=== PATIENT | male | born 1980 | race Caucasian/White ===

== ENCOUNTER 2017-02-03 11:47 | Emergency (ER) | payer SELFPAY ==
[~2017-02-03] VITALS: Ht 170.2 cm; Wt 69.2 kg
[~2017-02-03 11:47] MED LIST: SIMV20TA2 PO
[2017-02-03 11:50] VITALS: TEMP 36.7; Ht 170.2 cm; Wt 69.2 kg
[2017-02-03] MEDS ORDERED: LPT/20 PO (12:49)
[2017-02-03 13:02] VITALS: BP 172/104; PULSE 65; O2SAT 98
--- NOTE | 2017-02-04 18:15 | EMERGENCY ROOM VISIT NOTE ---
ED Visit Note First contact with patient: 11:58 Chief Complaint: I can't see out of my left eye. History of Present Illness: Mr. Andrade is a 36-year-old white male who ambulates into the ED accompanied by a female friend complaining of visual changes in his left eye. Patient reports 5 days ago he woke up from sleep and notice there was redness and drainage from his eyes with leftward prominence. He was seen in emergency department in [place]; where he was working, and diagnosed with bilateral conjunctivitis. He reports he was prescribed sulfa-based antibiotic eyedrops and discharged. Over the 2 days he reports he was using the antibiotics as prescribed but he continued to have increasing drainage, tearing, light sensitivity and then on the second day he reports he had vision changes in the left eye. He reports he went back to the ED in [place] and they made a follow-up appointment with an kit assembler. Patient goes on to report that he contacted his boss in [place] and he encouraged him just to come home to be evaluated. Patient reports he drove all night with his to get home and he arrived late last night. Over the interim he reports he continues to have decreasing vision in his left eye. Currently he continues to have redness and drainage from the eye. He reports he is able to see shadows and bright lights but cannot distinguish letters words. He is not experiencing any pain except when exposure to bright light or wind. He has not taken any medications for pain. He continues his antibiotics as prescribed. He denies any associated symptoms including fevers, chills, sweats, skin eruptions, skin color changes, recent history of trauma to the eye , previous significant injuries or surgeries to the eye, upper respiratory tract symptoms, facial pain, visual changes in the right eye. Review of Systems: As noted above in history of present illness. 8 body systems were reviewed and found to be negative as noted above. Past Medical History: Dyslipidemia. Current Medications: Atorvastatin. Allergies to Medications: Patient denies. Social History: Patient is currently employed; he feels safe in his home environment; he admits tobacco and alcohol use. Physical Examination: Vital Signs: Date Time Temp Pulse Resp B/P (MAP) Pulse Ox O2 Delivery O2 Flow Rate FiO2 02/03/17 13:02 65 172/104 98 Room Air 02/03/17 11:50 36.7 65 20 173/99 99 Room Air GENERAL: 36-year-old male in mild distress due to symptoms, nontoxic-appearing, afebrile and hemodynamically stable. NEUROLOGICAL: Awake, alert and oriented to person, place and time. Answering questions appropriately and following commands. Normal gait. SKIN: Warm, dry and pink. No soft tissue eruptions or trauma noted. HEENT: Atraumatic and normocephalic. PERRLA. EOMI without nystagmus. Sclera erythematous and slightly edematous. Conjunctiva pink with drainage of clear tears; over the eyelid borders patient does have what appears to be a dry greenish mucus. No foreign bodies were found under the eyelids are embedded in the cornea. Carrier chamber was clear. On slit lamp examination in the left eye patient has a large amount of uptake of stain in a star shaped pattern over the entire cornea. No ulcers were appreciated. On the right eye there was no uptake. Visual acuity: Left 20/200, Right 20/20. Patient was able to perceive light and was able to distinguish number of fingers raised approximately 2 feet from his eyes. I did attempt to use the tonometer without success because it could not identify the eye. No erythema or tenderness over the frontal or maxillary sinuses. No erythema or tenderness over the soft tissues of the orbit. No local lymphadenopathy. Airway was patent. No intraoral trauma or signs of infection. ED Course: Patient is assessed as noted above. Patient's medications were reviewed. Alcaine was used to anesthetize the eye for examination. Patient's case was consulted with Dr. Narayanan, kit assembler; he recommended stopping the antibiotic eyedrops and just to use Tear Gel; one drop every 2 hours while awake, and office follow-up. Patient was educated about today's findings and instructed on his treatment plan ; he verbalizes understanding and agreement with this plan. Clinical Impression: Acute keratitis. Disposition: Patient discharged home in stable condition accompanied by his ; prior to departure he was reassessed and subjectively reported he was feeling the same. Plan: Patient was encouraged to use the gel tears as defined above. Patient was encouraged to stop his antibiotic drops. Patient was encouraged to contact Dr. Narayanan's office in the morning and request follow-up care and treatment. Patient was encouraged to contact Dr. Narayanan for worsening symptoms. Patient was encouraged also to return to the ED for worsening symptoms, fevers, vomiting, severe headaches, worsening vision changes or any new/concerning symptoms.
== END 2017-02-03 13:15 | disposition home or self-care (01) ==
LOC: C.EDB 11:49 → C.EDD 13:15
DX: H16.9 Unspecified keratitis (principal); E78.5 Hyperlipidemia, unspecified; F17.200 Nicotine dependence, unspecified, uncomplicated